=== PATIENT | male | born 1950 | race Caucasian/White ===

== ENCOUNTER 2017-11-23 01:20 | Inpatient (IN) | payer MEDICARE, BC ==
[2017-11-23 02:01] LABS: URINE BLOOD (Dip) POC 3+ (NEGATIVE); URINE GLUCOSE (Dip) POC Negative (NEGATIVE); URINE KETONES (Dip) POC 1+ (NEGATIVE); URINE LEUKOCYTE EST (Dip) POC 3+ (NEGATIVE); URINE NITRITE (Dip) POC Negative (NEGATIVE); URINE TOTAL PROTEIN POC 3+ (NEGATIVE)
[2017-11-23 02:01] LABS: URINE PH (Dip) POC 5.5 (5.0-8.5)
[2017-11-23 02:23] LABS: ADD MAN DIFF? NO
[2017-11-23 02:25] LABS: BASOPHIL # 0.1 10^3/ul (0.0-0.1); BASOPHILS % 0.3 % (0.0-2.0); EOSINOPHILS # 1.3 10^3/ul (0.0-0.5); EOSINOPHILS % 5.5 % (0.0-7.0); HEMATOCRIT 30.2 % (42.0-52.0); HEMOGLOBIN 9.4 g/dl (14.0-18.0); LYMPHOCYTES # 1.3 10^3/ul (0.8-2.9); LYMPHOCYTES % 5.3 % (15.0-51.0); MEAN CORPUSCULAR HEMOGLOBIN 30.5 pg (29.0-33.0); MEAN CORPUSCULAR HGB CONC 31.1 g/dl (32.0-37.0); MEAN CORPUSCULAR VOLUME 98.1 fl (82.0-101.0); MEAN PLATELET VOLUME 9.2 fl (7.4-10.4); MONOCYTE # 1.3 10^3/ul (0.3-0.9); MONOCYTES % 5.2 % (0.0-11.0); NEUTROPHIL # 19.9 10^3/ul (1.6-7.5); PLATELET COUNT 375 10^3/UL (140-415); RED BLOOD COUNT 3.08 10^6/ul (4.70-6.10); RED CELL DISTRIBUTION WIDTH 13.8 % (11.5-14.5)
[2017-11-23 02:41] LABS: ALANINE AMINOTRANSFERASE 22 IU/L (13-69); ALBUMIN 3.5 g/dl (3.3-4.9); ALBUMIN/GLOBULIN RATIO 1.02; ALKALINE PHOSPHATASE 78 IU/L (42-121); ANION GAP 12 (8-16); ASPARTATE AMINO TRANSFERASE 14 IU/L (15-46); BLOOD UREA NITROGEN 34 mg/dl (7-20); CALCIUM 9.6 mg/dl (8.4-10.2); CARBON DIOXIDE 33 mmol/L (21-31); CHLORIDE 101 mmol/L (97-110); CREATININE 1.23 mg/dl (0.61-1.24); GLUCOSE 100 mg/dl (70-220); LIPASE 116 U/L (23-300); POTASSIUM 4.6 mmol/L (3.5-5.1); SODIUM 141 mmol/L (135-144); TOTAL PROTEIN 6.9 g/dl (6.1-8.1)
[2017-11-23 02:43] LABS: ADD UMIC YES; INR 0.94; PROTIME 12.7 Sec (11.9-14.9); UR ASCORBIC ACID NEGATIVE (NEGATIVE); UR BACTERIA FEW /HPF (NONE SEEN); UR BILIRUBIN (Dip) NEGATIVE (NEGATIVE); UR BLOOD (Dip) 3+ mg/dL (NEGATIVE); UR CLARITY TURBID (CLEAR); UR COLOR RED (YELLOW); UR GLUCOSE (Dip) 1+ mg/dL (NEGATIVE); UR KETONES (Dip) NEGATIVE (NEGATIVE); UR LEUKOCYTE ESTERASE (Dip) NEGATIVE Leu/ul (NEGATIVE); UR NITRITE (Dip) NEGATIVE (NEGATIVE); UR RBC > 182 /HPF (0-5); UR SPECIFIC GRAVITY (Dip) 1.031 (1.003-1.030); UR TOTAL PROTEIN (Dip) 3+ mg/dl (NEGATIVE); UR UROBILINOGEN (Dip) NEGATIVE (NEGATIVE); UR WBC 78 /HPF (0-5)
[2017-11-23 02:44] LABS: PARTIAL THROMBOPLASTIN TIME 38.5 Sec (25.0-35.0)
[2017-11-23] MEDS: SODIUM CHLORIDE 0.9% 1L BAG IV* (03:23)
[2017-11-23] MEDS: CEFEPIME 2GM/50 ML (PMX) 50 ML IVPB (03:23)
[2017-11-23] MEDS: ONDANSETRON 4 MG INJ IV (03:44)
[2017-11-23] MEDS: VANCOMYCIN 1 GM (PMX) 250 ML IVPB (03:44)
[2017-11-23] MEDS: morphine 4 MG/ML VIAL IV (03:44)
[2017-11-23 04:00] LABS: LACTIC ACID 0.9 mmol/L (0.5-2.0)
[2017-11-23] MEDS: LORAZEPAM 2 MG INJ IV (04:14)
[2017-11-23] MEDS: HYDROmorphONE 1 MG/5 ML IV SYRINGE IV (04:46)
[2017-11-23] MEDS: LIDOCAINE 2% JELLY 5 ML TOP (04:46)
[2017-11-23] MEDS ORDERED: NACL 0.9% 3 ML SYG IV (07:00)
[2017-11-23] MEDS ORDERED: ONDANSETRON 4 MG INJ IV (07:00)
[2017-11-23] MEDS ORDERED: ACETAMINOPHEN 325 MG TAB PO (07:00)
[2017-11-23] MEDS ORDERED: VANCOMYCIN IV PER PHARMACY XX (07:00)
[2017-11-23 07:33] LABS: LACTIC ACID 0.7 mmol/L (0.5-2.0)
[2017-11-23] MEDS: PIPER-TAZO 3.375 GM IV (PMX) 100 ML IVPB ×3 (07:41→17:23)
[2017-11-23] MEDS: SOD CHLORIDE 0.9% 500 ML IV (08:07)
[2017-11-23 08:12] LABS: ADD MAN DIFF? NO
[2017-11-23 08:23] LABS: WHITE BLOOD COUNT 26.2 10^3/ul (4.8-10.8)
[2017-11-23 08:23] LABS: ABNORMAL IP MESSAGE 1; HEMATOCRIT 30.6 % (42.0-52.0); HEMOGLOBIN 9.6 g/dl (14.0-18.0); MEAN CORPUSCULAR HEMOGLOBIN 30.5 pg (29.0-33.0); MEAN CORPUSCULAR HGB CONC 31.4 g/dl (32.0-37.0); MEAN CORPUSCULAR VOLUME 97.1 fl (82.0-101.0); MEAN PLATELET VOLUME 9.2 fl (7.4-10.4); PLATELET COUNT 348 10^3/UL (140-415); POSITIVE DIFF @See below; RED BLOOD COUNT 3.15 10^6/ul (4.70-6.10); RED CELL DISTRIBUTION WIDTH 13.8 % (11.5-14.5)
[2017-11-23 08:33] LABS: ALANINE AMINOTRANSFERASE 21 IU/L (13-69); ALBUMIN 3.4 g/dl (3.3-4.9); ALBUMIN/GLOBULIN RATIO 1.03; ALKALINE PHOSPHATASE 71 IU/L (42-121); ANION GAP 13 (8-16); ASPARTATE AMINO TRANSFERASE 17 IU/L (15-46); BILIRUBIN,INDIRECT 0.2 mg/dl (0-1.1); BILIRUBIN,TOTAL 0.2 mg/dl (0.2-1.3); BLOOD UREA NITROGEN 34 mg/dl (7-20); CALCIUM 9.5 mg/dl (8.4-10.2); CARBON DIOXIDE 30 mmol/L (21-31); CHLORIDE 105 mmol/L (97-110); CREATININE 1.28 mg/dl (0.61-1.24); GLUCOSE 91 mg/dl (70-220); SODIUM 143 mmol/L (135-144); TOTAL PROTEIN 6.7 g/dl (6.1-8.1)
[2017-11-23 08:37] LABS: BASOPHIL # 0.1 10^3/ul (0.0-0.1); BASOPHILS % 0.4 % (0.0-2.0); EOSINOPHILS % 3.8 % (0.0-7.0); LYMPHOCYTES # 1.3 10^3/ul (0.8-2.9); LYMPHOCYTES % 4.8 % (15.0-51.0); MONOCYTE # 1.3 10^3/ul (0.3-0.9); NEUTROPHIL # 22.4 10^3/ul (1.6-7.5); NEUTROPHILS % 85.4 % (39.0-77.0)
[2017-11-23 08:42] LABS: CHOLESTEROL 102 mg/dl (100-200)
[2017-11-23 08:42] LABS: CHOL/HDL RATIO 3.4 RATIO; HDL CHOLESTEROL 30 mg/dl (31-75); LDL CHOLESTEROL,CALCULATED 52 mg/dl; TRIGLYCERIDES 99 mg/dl (0-149)
[2017-11-23 08:49] LABS: EOSINOPHILS % (M) 5 % (0-7); LYMPHOCYTES % (M) 4 % (15-51); MONOCYTE #M 1.8 10^3/ul (0.3-0.9); MONOCYTES % (M) 7 % (0-11); PLATELET ESTIMATE NORMAL; SEGMENTED NEUTROPHILS (M) % 84 % (39-77)
[2017-11-23 08:53] LABS: HEMOGLOBIN A1C 5.3 % (0-5.9)
[2017-11-23 09:03] LABS: PROSTATE SPECIFIC ANTIGEN 2.3 ng/ml (0.0-4.0)
[2017-11-23 09:16] LABS: CARCINOEMBRYONIC ANTIGEN 7.2 ng/ml (0.0-5.0)
[2017-11-23] MEDS: SOD CHLORIDE 0.9% 1,000 ML IV ×2 (11:41→17:23)
[2017-11-23 12:05] LABS: ADD MAN DIFF? NO
[2017-11-23] MEDS: PANTOPRAZOLE (EC) 40 MG TAB PO (12:24)
[2017-11-23] MEDS: SUCRALFATE (100 MG/ML) 10ML CUP PO ×3 (12:24→21:19)
[2017-11-23 12:27] LABS: ABNORMAL IP MESSAGE 1; BASOPHIL # 0.1 10^3/ul (0.0-0.1); BASOPHILS % 0.3 % (0.0-2.0); EOSINOPHILS # 0.7 10^3/ul (0.0-0.5); EOSINOPHILS % 2.8 % (0.0-7.0); HEMATOCRIT 28.7 % (42.0-52.0); HEMOGLOBIN 9.1 g/dl (14.0-18.0); LYMPHOCYTES # 0.6 10^3/ul (0.8-2.9); LYMPHOCYTES % 2.7 % (15.0-51.0); MEAN CORPUSCULAR HEMOGLOBIN 30.8 pg (29.0-33.0); MEAN CORPUSCULAR HGB CONC 31.7 g/dl (32.0-37.0); MEAN CORPUSCULAR VOLUME 97.3 fl (82.0-101.0); MEAN PLATELET VOLUME 9.2 fl (7.4-10.4); MONOCYTE # 1.1 10^3/ul (0.3-0.9); MONOCYTES % 4.7 % (0.0-11.0); NEUTROPHIL # 20.4 10^3/ul (1.6-7.5); NEUTROPHILS % 88.8 % (39.0-77.0); PLATELET COUNT 328 10^3/UL (140-415); POSITIVE DIFF @See below; RED BLOOD COUNT 2.95 10^6/ul (4.70-6.10); RED CELL DISTRIBUTION WIDTH 13.5 % (11.5-14.5)
[2017-11-23 12:37] LABS: LACTIC ACID 0.7 mmol/L (0.5-2.0)
[2017-11-23 14:25] LABS: PROSTATE SPECIFIC ANTIGEN 3.2 ng/ml (0.0-4.0)
[2017-11-23] MEDS: HYDROmorphONE 0.5 MG/0.5 ML SYG IV ×2 (17:25→21:19)
[2017-11-23 19:20] LABS: ADD UMIC YES; UR ASCORBIC ACID NEGATIVE (NEGATIVE); UR BACTERIA FEW /HPF (NONE SEEN); UR BILIRUBIN (Dip) NEGATIVE (NEGATIVE); UR BLOOD (Dip) 3+ mg/dL (NEGATIVE); UR CLARITY CLEAR (CLEAR); UR COLOR COLORLESS (YELLOW); UR GLUCOSE (Dip) NEGATIVE (NEGATIVE); UR KETONES (Dip) NEGATIVE (NEGATIVE); UR LEUKOCYTE ESTERASE (Dip) TRACE Leu/ul (NEGATIVE); UR NITRITE (Dip) NEGATIVE (NEGATIVE); UR RBC > 182 /HPF (0-5); UR SPECIFIC GRAVITY (Dip) 1.004 (1.003-1.030); UR TOTAL PROTEIN (Dip) NEGATIVE (NEGATIVE); UR UROBILINOGEN (Dip) NEGATIVE (NEGATIVE); UR WBC 6 /HPF (0-5)
[2017-11-23 19:37] LABS: SODIUM,URINE RANDOM 164 mmol/L (30-90)
[2017-11-23 19:41] LABS: CREATININE,URINE RANDOM < 12.40 mg/dl (20-370)
[2017-11-23] MEDS: GABAPENTIN 300 MG CAP PO (21:19)
[2017-11-23] MEDS: TAMSULOSIN (SR) 0.4 MG CAP PO (21:19)
[2017-11-24] MEDS: SOD CHLORIDE 0.9% 1,000 ML IV ×2 (00:10→14:04)
[2017-11-24] MEDS: PIPER-TAZO 3.375 GM IV (PMX) 100 ML IVPB ×4 (00:15→17:47)
[2017-11-24 00:57] LABS: ADD MAN DIFF? NO
[2017-11-24 00:58] LABS: ABNORMAL IP MESSAGE 1; BASOPHIL # 0.1 10^3/ul (0.0-0.1); BASOPHILS % 0.4 % (0.0-2.0); EOSINOPHILS # 0.2 10^3/ul (0.0-0.5); EOSINOPHILS % 0.6 % (0.0-7.0); HEMATOCRIT 27.5 % (42.0-52.0); HEMOGLOBIN 8.8 g/dl (14.0-18.0); LYMPHOCYTES # 1.1 10^3/ul (0.8-2.9); LYMPHOCYTES % 3.7 % (15.0-51.0); MEAN CORPUSCULAR HEMOGLOBIN 31.4 pg (29.0-33.0); MEAN CORPUSCULAR VOLUME 98.2 fl (82.0-101.0); MEAN PLATELET VOLUME 9.2 fl (7.4-10.4); MONOCYTE # 1.8 10^3/ul (0.3-0.9); MONOCYTES % 6.2 % (0.0-11.0); NEUTROPHIL # 26.1 10^3/ul (1.6-7.5); NEUTROPHILS % 88.3 % (39.0-77.0); PLATELET COUNT 330 10^3/UL (140-415); POSITIVE DIFF @See below; RED CELL DISTRIBUTION WIDTH 13.6 % (11.5-14.5)
[2017-11-24 00:58] LABS: WHITE BLOOD COUNT 29.5 10^3/ul (4.8-10.8)
[2017-11-24] MEDS: VANCOMYCIN 750 MG in DEXTROSE 5% 150 ML IVPB (03:10)
[2017-11-24] MEDS: HYDROmorphONE 0.5 MG/0.5 ML SYG IV (03:19)
[2017-11-24 06:05] LABS: ADD MAN DIFF? NO
[2017-11-24 06:15] LABS: ABNORMAL IP MESSAGE 1; BASOPHIL # 0.1 10^3/ul (0.0-0.1); BASOPHILS % 0.3 % (0.0-2.0); EOSINOPHILS # 0.1 10^3/ul (0.0-0.5); EOSINOPHILS % 0.4 % (0.0-7.0); HEMATOCRIT 27.1 % (42.0-52.0); HEMOGLOBIN 8.5 g/dl (14.0-18.0); LYMPHOCYTES # 1.4 10^3/ul (0.8-2.9); LYMPHOCYTES % 5.3 % (15.0-51.0); MEAN CORPUSCULAR HEMOGLOBIN 30.6 pg (29.0-33.0); MEAN CORPUSCULAR HGB CONC 31.4 g/dl (32.0-37.0); MEAN CORPUSCULAR VOLUME 97.5 fl (82.0-101.0); MEAN PLATELET VOLUME 9.4 fl (7.4-10.4); MONOCYTE # 1.7 10^3/ul (0.3-0.9); MONOCYTES % 6.1 % (0.0-11.0); NEUTROPHIL # 23.5 10^3/ul (1.6-7.5); NEUTROPHILS % 87.1 % (39.0-77.0); PLATELET COUNT 324 10^3/UL (140-415); POSITIVE DIFF @See below; RED BLOOD COUNT 2.78 10^6/ul (4.70-6.10); RED CELL DISTRIBUTION WIDTH 13.7 % (11.5-14.5)
[2017-11-24 06:45] LABS: ANION GAP 11 (8-16); BLOOD UREA NITROGEN 30 mg/dl (7-20); CALCIUM 8.9 mg/dl (8.4-10.2); CARBON DIOXIDE 31 mmol/L (21-31); CHLORIDE 103 mmol/L (97-110); CREATININE 1.54 mg/dl (0.61-1.24); GLUCOSE 127 mg/dl (70-220); MAGNESIUM 2.1 mg/dl (1.7-2.5); PHOSPHORUS 3.8 mg/dl (2.5-4.9); POTASSIUM 4.7 mmol/L (3.5-5.1); SODIUM 140 mmol/L (135-144)
[2017-11-24] MEDS: PANTOPRAZOLE (EC) 40 MG TAB PO (07:46)
[2017-11-24] MEDS: SUCRALFATE (100 MG/ML) 10ML CUP PO ×4 (08:42→20:19)
[2017-11-24] MEDS: GABAPENTIN 300 MG CAP PO ×3 (08:42→20:19)
[2017-11-24] MEDS: DOCUSATE SODIUM 100 MG CAP PO (08:43)
[2017-11-24] MEDS: ACETAMINOPHEN 325 MG TAB PO (09:52)
[2017-11-24 11:54] LABS: ADD MAN DIFF? NO
[2017-11-24 12:01] LABS: WHITE BLOOD COUNT 22.4 10^3/ul (4.8-10.8)
[2017-11-24 12:01] LABS: ABNORMAL IP MESSAGE 1; BASOPHIL # 0.1 10^3/ul (0.0-0.1); BASOPHILS % 0.3 % (0.0-2.0); EOSINOPHILS # 0.1 10^3/ul (0.0-0.5); EOSINOPHILS % 0.6 % (0.0-7.0); HEMATOCRIT 24.8 % (42.0-52.0); LYMPHOCYTES # 0.8 10^3/ul (0.8-2.9); LYMPHOCYTES % 3.7 % (15.0-51.0); MEAN CORPUSCULAR HEMOGLOBIN 31.4 pg (29.0-33.0); MEAN CORPUSCULAR HGB CONC 32.3 g/dl (32.0-37.0); MEAN CORPUSCULAR VOLUME 97.3 fl (82.0-101.0); MEAN PLATELET VOLUME 9.1 fl (7.4-10.4); MONOCYTE # 1.1 10^3/ul (0.3-0.9); MONOCYTES % 4.7 % (0.0-11.0); NEUTROPHIL # 20.2 10^3/ul (1.6-7.5); PLATELET COUNT 271 10^3/UL (140-415); POSITIVE DIFF @See below; RED BLOOD COUNT 2.55 10^6/ul (4.70-6.10)
[2017-11-24 16:46] LABS: CREATININE, RANDOM URINE 1 mg/dL (20-370); MICROALBUMIN 1.5 mg/dL; MICROALBUMIN/CREATININE RATIO 1500 (<30)
[2017-11-24] MEDS: TAMSULOSIN (SR) 0.4 MG CAP PO (20:19)
[2017-11-24] MEDS: HYDROmorphONE 2 MG TAB PO (22:30)
[2017-11-25] MEDS: PIPER-TAZO 3.375 GM IV (PMX) 100 ML IVPB ×4 (00:27→18:00)
[2017-11-25] MEDS: SOD CHLORIDE 0.9% 1,000 ML IV ×3 (00:27→11:38)
[2017-11-25] MEDS: morphine 2 MG INJ IV ×4 (03:03→16:02)
[2017-11-25] MEDS: ONDANSETRON 4 MG INJ IV (03:03)
[2017-11-25] MEDS: PANTOPRAZOLE (EC) 40 MG TAB PO (05:16)
[2017-11-25 05:45] LABS: ADD MAN DIFF? NO
[2017-11-25 05:48] LABS: BASOPHIL # 0.1 10^3/ul (0.0-0.1); BASOPHILS % 0.3 % (0.0-2.0); EOSINOPHILS # 0.8 10^3/ul (0.0-0.5); EOSINOPHILS % 4.2 % (0.0-7.0); HEMATOCRIT 25.5 % (42.0-52.0); HEMOGLOBIN 7.9 g/dl (14.0-18.0); LYMPHOCYTES # 1.4 10^3/ul (0.8-2.9); LYMPHOCYTES % 7.4 % (15.0-51.0); MEAN CORPUSCULAR HEMOGLOBIN 30.2 pg (29.0-33.0); MEAN CORPUSCULAR VOLUME 97.3 fl (82.0-101.0); MEAN PLATELET VOLUME 9.4 fl (7.4-10.4); MONOCYTE # 1.1 10^3/ul (0.3-0.9); MONOCYTES % 5.8 % (0.0-11.0); NEUTROPHIL # 14.9 10^3/ul (1.6-7.5); NEUTROPHILS % 81.6 % (39.0-77.0); PLATELET COUNT 299 10^3/UL (140-415); RED BLOOD COUNT 2.62 10^6/ul (4.70-6.10); RED CELL DISTRIBUTION WIDTH 13.6 % (11.5-14.5)
[2017-11-25 05:48] LABS: WHITE BLOOD COUNT 18.2 10^3/ul (4.8-10.8)
[2017-11-25 06:28] LABS: ANION GAP 10 (8-16); BLOOD UREA NITROGEN 29 mg/dl (7-20); CALCIUM 8.6 mg/dl (8.4-10.2); CARBON DIOXIDE 31 mmol/L (21-31); CHLORIDE 107 mmol/L (97-110); GLUCOSE 95 mg/dl (70-220); MAGNESIUM 2.1 mg/dl (1.7-2.5); POTASSIUM 4.9 mmol/L (3.5-5.1); SODIUM 143 mmol/L (135-144)
[2017-11-25] MEDS ORDERED: ESMOLOL 100 MG INJ (07:00)
[2017-11-25] MEDS: GABAPENTIN 300 MG CAP PO ×2 (09:00→13:00)
[2017-11-25] MEDS: SUCRALFATE (100 MG/ML) 10ML CUP PO ×3 (09:00→17:00)
[2017-11-25] MEDS ORDERED: ROCURONIUM 50 MG INJ ×2 (19:00→20:54)
[2017-11-25] MEDS ORDERED: ETOMIDATE 20 MG INJ (19:00)
[2017-11-25] MEDS ORDERED: LIDOCAINE 2% (SDV) 5 ML INJ (19:00)
[2017-11-25] MEDS ORDERED: FENTAnyl 50 MCG/ML VIAL ×2 (19:01→19:42)
[2017-11-25] MEDS ORDERED: DEXAMETHASONE 4 MG/ML 1 ML INJ (19:23)
[2017-11-25] MEDS ORDERED: ONDANSETRON 4 MG INJ (19:23)
[2017-11-25] MEDS ORDERED: PHENYLephrine (100 MCG/ML) 5ML SYG ×2 (19:25→19:36)
[2017-11-25] MEDS ORDERED: METHYLENE BLUE 1% 10 ML INJ (19:49)
[2017-11-25 20:31] LABS: IMMEDIATE SPIN CROSSMATCH 1 4
[2017-11-25] MEDS ORDERED: SUGAMMADEX SODIUM 200 MG/2 ML VIAL IV (20:58)
[2017-11-25] MEDS ORDERED: HYDROmorphONE 1 MG/5 ML IV SYRINGE IV ×2 (21:30→22:00)
[2017-11-25] MEDS: HYDROmorphONE 1 MG/5 ML IV SYRINGE IV (21:40)
[2017-11-25] MEDS ORDERED: ONDANSETRON 4 MG INJ IV (22:00)
[2017-11-25] MEDS ORDERED: hydrALAzine 20 MG INJ IV (22:00)
[2017-11-25] MEDS ORDERED: LABETALOL HCL 20MG INJ IV (22:00)
[2017-11-26] MEDS: HYDROmorphONE 1 MG/5 ML IV SYRINGE IV (00:27)
[2017-11-26] MEDS: GABAPENTIN 300 MG CAP PO ×4 (01:07→20:58)
[2017-11-26] MEDS: SUCRALFATE (100 MG/ML) 10ML CUP PO ×5 (01:07→20:58)
[2017-11-26] MEDS: PIPER-TAZO 3.375 GM IV (PMX) 100 ML IVPB ×5 (01:07→23:28)
[2017-11-26] MEDS: SOD CHLORIDE 0.9% 1,000 ML IV ×3 (01:10→23:25)
[2017-11-26] MEDS: morphine 2 MG INJ IV ×2 (04:05→16:29)
[2017-11-26 06:07] LABS: ADD MAN DIFF? NO
[2017-11-26 06:14] LABS: ABNORMAL IP MESSAGE 1; BASOPHILS % 0.1 % (0.0-2.0); HEMATOCRIT 35.1 % (42.0-52.0); HEMOGLOBIN 11.7 g/dl (14.0-18.0); LYMPHOCYTES # 0.4 10^3/ul (0.8-2.9); LYMPHOCYTES % 1.4 % (15.0-51.0); MEAN CORPUSCULAR HEMOGLOBIN 31.1 pg (29.0-33.0); MEAN CORPUSCULAR HGB CONC 33.3 g/dl (32.0-37.0); MEAN CORPUSCULAR VOLUME 93.4 fl (82.0-101.0); MEAN PLATELET VOLUME 9.5 fl (7.4-10.4); MONOCYTE # 0.2 10^3/ul (0.3-0.9); MONOCYTES % 0.8 % (0.0-11.0); NEUTROPHIL # 26.4 10^3/ul (1.6-7.5); NEUTROPHILS % 96.7 % (39.0-77.0); PLATELET COUNT 278 10^3/UL (140-415); POSITIVE DIFF @See below; RED BLOOD COUNT 3.76 10^6/ul (4.70-6.10); RED CELL DISTRIBUTION WIDTH 14.3 % (11.5-14.5)
[2017-11-26 06:14] LABS: WHITE BLOOD COUNT 27.3 10^3/ul (4.8-10.8)
[2017-11-26] MEDS: PANTOPRAZOLE (EC) 40 MG TAB PO (06:22)
[2017-11-26 06:31] LABS: PHOSPHORUS 4.8 mg/dl (2.5-4.9)
[2017-11-26 06:31] LABS: MAGNESIUM 1.9 mg/dl (1.7-2.5)
[2017-11-26 06:42] LABS: ALANINE AMINOTRANSFERASE 20 IU/L (13-69); ALKALINE PHOSPHATASE 66 IU/L (42-121); ASPARTATE AMINO TRANSFERASE 16 IU/L (15-46); BILIRUBIN,INDIRECT 0.8 mg/dl (0-1.1); BILIRUBIN,TOTAL 0.8 mg/dl (0.2-1.3); BLOOD UREA NITROGEN 26 mg/dl (7-20); CALCIUM 8.9 mg/dl (8.4-10.2); CARBON DIOXIDE 28 mmol/L (21-31); CHLORIDE 103 mmol/L (97-110); CREATININE 1.21 mg/dl (0.61-1.24); GLUCOSE 141 mg/dl (70-220); SODIUM 141 mmol/L (135-144)
[2017-11-26 06:51] LABS: ANION GAP 15 (8-16)
[2017-11-26 06:52] LABS: POTASSIUM 4.5 mmol/L (3.5-5.1)
[2017-11-26] MEDS: DOCUSATE SODIUM 100 MG CAP PO (08:10)
[2017-11-26] MEDS: HYDROmorphONE 2 MG TAB PO ×2 (08:11→12:37)
[2017-11-27] MEDS: HYDROmorphONE 2 MG TAB PO ×3 (01:12→20:44)
[2017-11-27 05:40] LABS: ADD MAN DIFF? NO
[2017-11-27 05:43] LABS: WHITE BLOOD COUNT 17.8 10^3/ul (4.8-10.8)
[2017-11-27 05:43] LABS: BASOPHIL # 0.1 10^3/ul (0.0-0.1); BASOPHILS % 0.3 % (0.0-2.0); EOSINOPHILS # 0.1 10^3/ul (0.0-0.5); EOSINOPHILS % 0.4 % (0.0-7.0); HEMOGLOBIN 10.9 g/dl (14.0-18.0); LYMPHOCYTES # 1.2 10^3/ul (0.8-2.9); LYMPHOCYTES % 6.8 % (15.0-51.0); MEAN CORPUSCULAR HEMOGLOBIN 31.1 pg (29.0-33.0); MEAN PLATELET VOLUME 9.5 fl (7.4-10.4); MONOCYTES % 5.8 % (0.0-11.0); NEUTROPHIL # 15.3 10^3/ul (1.6-7.5); NEUTROPHILS % 86.1 % (39.0-77.0); PLATELET COUNT 289 10^3/UL (140-415); RED BLOOD COUNT 3.51 10^6/ul (4.70-6.10)
[2017-11-27] MEDS: PANTOPRAZOLE (EC) 40 MG TAB PO (06:00)
[2017-11-27] MEDS: PIPER-TAZO 3.375 GM IV (PMX) 100 ML IVPB ×3 (06:00→17:56)
[2017-11-27 06:11] LABS: ANION GAP 8 (8-16); BLOOD UREA NITROGEN 27 mg/dl (7-20); CALCIUM 8.7 mg/dl (8.4-10.2); CARBON DIOXIDE 29 mmol/L (21-31); CHLORIDE 108 mmol/L (97-110); GLUCOSE 104 mg/dl (70-220); MAGNESIUM 2.1 mg/dl (1.7-2.5); PHOSPHORUS 2.9 mg/dl (2.5-4.9); POTASSIUM 4.4 mmol/L (3.5-5.1); SODIUM 141 mmol/L (135-144)
[2017-11-27] MEDS: morphine 2 MG INJ IV (08:22)
[2017-11-27] MEDS: GABAPENTIN 300 MG CAP PO ×3 (08:23→20:44)
[2017-11-27] MEDS: SUCRALFATE (100 MG/ML) 10ML CUP PO ×4 (08:23→20:44)
[2017-11-27] MEDS: SOD CHLORIDE 0.9% 1,000 ML IV ×2 (12:21→22:00)
[2017-11-28] MEDS: PIPER-TAZO 3.375 GM IV (PMX) 100 ML IVPB ×4 (00:25→17:21)
[2017-11-28] MEDS ORDERED: VANCOMYCIN IV PER PHARMACY XX (02:00)
[2017-11-28] MEDS: VANCOMYCIN 1.25 GM in SOD CHLORIDE 0.9% 250 ML IVPB (03:16)
[2017-11-28] MEDS: HYDROmorphONE 2 MG TAB PO ×4 (03:23→20:01)
[2017-11-28 06:14] LABS: ADD MAN DIFF? NO
[2017-11-28] MEDS: SOD CHLORIDE 0.9% 1,000 ML IV ×2 (06:17→17:21)
[2017-11-28 06:19] LABS: WHITE BLOOD COUNT 29.5 10^3/ul (4.8-10.8)
[2017-11-28 06:19] LABS: ABNORMAL IP MESSAGE 1; BASOPHIL # 0.1 10^3/ul (0.0-0.1); BASOPHILS % 0.3 % (0.0-2.0); EOSINOPHILS % 0.1 % (0.0-7.0); HEMATOCRIT 35.3 % (42.0-52.0); HEMOGLOBIN 11.7 g/dl (14.0-18.0); LYMPHOCYTES # 1.4 10^3/ul (0.8-2.9); LYMPHOCYTES % 4.8 % (15.0-51.0); MEAN CORPUSCULAR HGB CONC 33.1 g/dl (32.0-37.0); MEAN CORPUSCULAR VOLUME 93.4 fl (82.0-101.0); MEAN PLATELET VOLUME 9.6 fl (7.4-10.4); MONOCYTE # 1.9 10^3/ul (0.3-0.9); MONOCYTES % 6.4 % (0.0-11.0); NEUTROPHIL # 25.9 10^3/ul (1.6-7.5); NEUTROPHILS % 87.8 % (39.0-77.0); PLATELET COUNT 307 10^3/UL (140-415); POSITIVE DIFF @See below; RED BLOOD COUNT 3.78 10^6/ul (4.70-6.10); RED CELL DISTRIBUTION WIDTH 13.5 % (11.5-14.5)
[2017-11-28] MEDS: PANTOPRAZOLE (EC) 40 MG TAB PO (06:34)
[2017-11-28 06:53] LABS: ANION GAP 11 (8-16); BLOOD UREA NITROGEN 24 mg/dl (7-20); CALCIUM 8.5 mg/dl (8.4-10.2); CARBON DIOXIDE 28 mmol/L (21-31); CHLORIDE 104 mmol/L (97-110); CREATININE 1.17 mg/dl (0.61-1.24); GLUCOSE 86 mg/dl (70-220); MAGNESIUM 2.1 mg/dl (1.7-2.5); PHOSPHORUS 2.5 mg/dl (2.5-4.9); POTASSIUM 3.7 mmol/L (3.5-5.1); SODIUM 139 mmol/L (135-144)
[2017-11-28] MEDS: GABAPENTIN 300 MG CAP PO ×3 (08:06→20:01)
[2017-11-28] MEDS: SUCRALFATE (100 MG/ML) 10ML CUP PO ×4 (08:06→20:01)
[2017-11-28] MEDS: SOD CHLORIDE 0.9% 100 ML (08:57)
[2017-11-28] MEDS: IODIXANOL LOCM 100 ML BTL (08:57)
[2017-11-28 10:04] LABS: IRON 24 ug/dl (35-150)
[2017-11-28 10:14] LABS: % IRON SATURATION 11 % SAT (22-52); TOTAL IRON BINDING CAPACITY 211 ug/dl (241-421)
[2017-11-28 13:04] LABS: HEPATITIS B SURFACE ANTIGEN NEGATIVE (NEGATIVE)
[2017-11-28 13:21] LABS: HEPATITIS C VIRAL ANTIBODY NEGATIVE (NEGATIVE)
[2017-11-28] MEDS: VANCOMYCIN 1 GM 250 ML IVPB (14:49)
[2017-11-28] MEDS: morphine LIQ (10 MG/5 ML) CUP PO ×2 (16:54→21:50)
[2017-11-29] MEDS: PIPER-TAZO 3.375 GM IV (PMX) 100 ML IVPB ×5 (00:05→23:57)
[2017-11-29] MEDS: HYDROmorphONE 2 MG TAB PO ×5 (02:26→20:48)
[2017-11-29] MEDS: VANCOMYCIN 1 GM 250 ML IVPB ×2 (02:26→15:32)
[2017-11-29] MEDS: SOD CHLORIDE 0.9% 1,000 ML IV ×2 (04:02→14:15)
[2017-11-29] MEDS: PANTOPRAZOLE (EC) 40 MG TAB PO (05:46)
[2017-11-29] MEDS: GABAPENTIN 300 MG CAP PO ×3 (08:28→20:48)
[2017-11-29] MEDS: morphine LIQ (10 MG/5 ML) CUP PO ×2 (08:28→22:06)
[2017-11-29] MEDS: SUCRALFATE (100 MG/ML) 10ML CUP PO ×4 (08:28→20:48)
[2017-11-29 09:27] LABS: ADD MAN DIFF? NO
[2017-11-29 09:32] LABS: WHITE BLOOD COUNT 23.7 10^3/ul (4.8-10.8)
[2017-11-29 09:32] LABS: ABNORMAL IP MESSAGE 1; BASOPHIL # 0.1 10^3/ul (0.0-0.1); BASOPHILS % 0.4 % (0.0-2.0); EOSINOPHILS # 0.7 10^3/ul (0.0-0.5); EOSINOPHILS % 2.9 % (0.0-7.0); HEMATOCRIT 37.6 % (42.0-52.0); HEMOGLOBIN 12.4 g/dl (14.0-18.0); LYMPHOCYTES % 4.1 % (15.0-51.0); MEAN CORPUSCULAR HEMOGLOBIN 31.4 pg (29.0-33.0); MEAN CORPUSCULAR VOLUME 95.2 fl (82.0-101.0); MEAN PLATELET VOLUME 9.5 fl (7.4-10.4); MONOCYTES % 4.3 % (0.0-11.0); NEUTROPHIL # 20.8 10^3/ul (1.6-7.5); NEUTROPHILS % 87.6 % (39.0-77.0); PLATELET COUNT 323 10^3/UL (140-415); POSITIVE DIFF @See below; RED BLOOD COUNT 3.95 10^6/ul (4.70-6.10); RED CELL DISTRIBUTION WIDTH 13.2 % (11.5-14.5)
[2017-11-29 15:07] LABS: VANCOMYCIN,TROUGH 13.2 ug/ml (10.0-20.0)
[2017-11-29] MEDS: FERROUS SULFATE (EC) 325 MG TAB PO (20:48)
[2017-11-30] MEDS: HYDROmorphONE 2 MG TAB PO ×3 (02:48→20:36)
[2017-11-30] MEDS: SOD CHLORIDE 0.9% 1,000 ML IV ×2 (02:56→18:49)
[2017-11-30] MEDS: VANCOMYCIN 1 GM 250 ML IVPB ×2 (03:04→15:49)
[2017-11-30] MEDS: SOD CHLORIDE 0.9% 500 ML IV (05:08)
[2017-11-30] MEDS: PIPER-TAZO 3.375 GM IV (PMX) 100 ML IVPB ×3 (06:13→18:06)
[2017-11-30] MEDS: PANTOPRAZOLE (EC) 40 MG TAB PO (06:13)
[2017-11-30 07:11] LABS: BLOOD UREA NITROGEN 23 mg/dl (7-20)
[2017-11-30 07:11] LABS: CREATININE 1.16 mg/dl (0.61-1.24)
[2017-11-30] MEDS: GABAPENTIN 300 MG CAP PO ×3 (09:19→20:35)
[2017-11-30] MEDS: FERROUS SULFATE (EC) 325 MG TAB PO ×2 (09:19→20:35)
[2017-11-30] MEDS: SUCRALFATE (100 MG/ML) 10ML CUP PO ×4 (09:19→20:36)
[2017-12-01] MEDS: PIPER-TAZO 3.375 GM IV (PMX) 100 ML IVPB ×5 (00:40→23:28)
[2017-12-01] MEDS: HYDROmorphONE 2 MG TAB PO ×5 (00:41→23:28)
[2017-12-01] MEDS: VANCOMYCIN 1 GM 250 ML IVPB (03:52)
[2017-12-01] MEDS: PANTOPRAZOLE (EC) 40 MG TAB PO (05:46)
[2017-12-01] MEDS: SOD CHLORIDE 0.9% 1,000 ML IV ×2 (05:47→08:46)
[2017-12-01] MEDS: GABAPENTIN 300 MG CAP PO (09:00)
[2017-12-01] MEDS: FERROUS SULFATE (EC) 325 MG TAB PO ×2 (09:00→21:19)
[2017-12-01] MEDS: SUCRALFATE (100 MG/ML) 10ML CUP PO ×4 (09:00→21:19)
[2017-12-01] MEDS: morphine (ER) 15 MG TAB PO ×2 (10:08→21:19)
[2017-12-01] MEDS: NAPROXEN 250 MG TAB PO ×2 (11:52→21:19)
[2017-12-02] MEDS: PIPER-TAZO 3.375 GM IV (PMX) 100 ML IVPB ×2 (05:49→12:22)
[2017-12-02] MEDS: PANTOPRAZOLE (EC) 40 MG TAB PO (05:50)
[2017-12-02] MEDS: HYDROmorphONE 2 MG TAB PO ×2 (05:50→12:50)
[2017-12-02 06:11] LABS: ANION GAP 9 (8-16); BLOOD UREA NITROGEN 26 mg/dl (7-20); CARBON DIOXIDE 31 mmol/L (21-31); CHLORIDE 104 mmol/L (97-110); GLUCOSE 87 mg/dl (70-220); MAGNESIUM 2.4 mg/dl (1.7-2.5); POTASSIUM 4.5 mmol/L (3.5-5.1); SODIUM 139 mmol/L (135-144)
[2017-12-02] MEDS: morphine (ER) 15 MG TAB PO (09:08)
[2017-12-02] MEDS: FERROUS SULFATE (EC) 325 MG TAB PO (09:08)
[2017-12-02] MEDS: SUCRALFATE (100 MG/ML) 10ML CUP PO ×2 (09:08→12:22)
[2017-12-02] MEDS: NAPROXEN 250 MG TAB PO (09:08)
== END 2017-12-02 15:15 | disposition home health service (06) | DRG 854 ==
LOC: E/R 01:20 → PP2 06:46
PROC: 0TBB8ZZ Excision of Bladder, Via Natural or Artificial Opening Endoscopic (ICD-10-PCS; principal; 2017-11-25 17:21)
PROC: 30233P1 Transfusion of Nonautologous Frozen Red Cells into Peripheral Vein, Percutaneous Approach (ICD-10-PCS; 2017-11-25 19:08)
DX: A41.9 Sepsis, unspecified organism (principal); N39.0 Urinary tract infection, site not specified; E44.0 Moderate protein-calorie malnutrition; N17.9 Acute kidney failure, unspecified; N13.30 Unspecified hydronephrosis; Z68.20 Body mass index [BMI] 20.0-20.9, adult; C67.9 Malignant neoplasm of bladder, unspecified; K62.89 Other specified diseases of anus and rectum; G89.29 Other chronic pain; R31.0 Gross hematuria; E83.89 Other disorders of mineral metabolism; E86.0 Dehydration; N40.1 Benign prostatic hyperplasia with lower urinary tract symptoms; M51.17 Intervertebral disc disorders with radiculopathy, lumbosacral region; M54.41 Lumbago with sciatica, right side; D50.9 Iron deficiency anemia, unspecified
CPT/HCPCS: 36415; 36430; 71045; 71250; 72148; 74176; 76700; 76775; 78306; 80048; 80053; 80061; 80202; 81001; 81003; 81270; 82043; 82378; 82565; 82728; 83036; 83540; 83605; 83690; 83735; 84100; 84153; 84154; 84155; 84300; 84443; 84520; 85025; 85610; 85730; 86803; 86850; 86900; 86901; 86920; 87040; 87086; 87340; 88104; 88305; 88307; 93005; 96365; 96366; 96367; 96375; 97116; 97162; 97530; 99291-25; A9503

== ENCOUNTER 2018-03-04 20:05 | Inpatient (IN) | payer MEDICARE, BC ==
[2018-03-04 22:02] LABS: WHITE BLOOD COUNT 11.1 10^3/ul (4.8-10.8)
[2018-03-04 22:02] LABS: ABNORMAL IP MESSAGE 1; HEMATOCRIT 24.5 % (42.0-52.0); MEAN CORPUSCULAR HEMOGLOBIN 30.3 pg (29.0-33.0); MEAN CORPUSCULAR HGB CONC 32.7 g/dl (32.0-37.0); MEAN CORPUSCULAR VOLUME 92.8 fl (82.0-101.0); MEAN PLATELET VOLUME 11.3 fl (7.4-10.4); PLATELET COUNT 205 10^3/UL (140-415); POSITIVE DIFF @See below; RED BLOOD COUNT 2.64 10^6/ul (4.70-6.10); RED CELL DISTRIBUTION WIDTH 18.7 % (11.5-14.5)
[2018-03-04 22:04] LABS: LACTIC ACID 1.8 mmol/L (0.5-2.0)
[2018-03-04 22:10] LABS: ADD MAN DIFF? YES
[2018-03-04] MEDS: SOD CHLORIDE 0.9% 1,000 ML IV ×2 (22:17→23:39)
[2018-03-04] MEDS: ONDANSETRON 4 MG INJ IV (22:18)
[2018-03-04 22:24] LABS: ALANINE AMINOTRANSFERASE 10 IU/L (13-69); ALBUMIN 3.1 g/dl (3.3-4.9); ALKALINE PHOSPHATASE 113 IU/L (42-121); ANION GAP 24 (8-16); ASPARTATE AMINO TRANSFERASE 49 IU/L (15-46); BILIRUBIN,INDIRECT 0.1 mg/dl (0-1.1); BILIRUBIN,TOTAL 0.1 mg/dl (0.2-1.3); BLOOD UREA NITROGEN 116 mg/dl (7-20); CALCIUM 8.6 mg/dl (8.4-10.2); CARBON DIOXIDE 20 mmol/L (21-31); CHLORIDE 96 mmol/L (97-110); GLUCOSE 141 mg/dl (70-220); LIPASE 13 U/L (23-300); SODIUM 132 mmol/L (135-144); TOTAL PROTEIN 6.2 g/dl (6.1-8.1)
[2018-03-04 22:27] LABS: POTASSIUM 7.9 mmol/L (3.5-5.1)
[2018-03-04 22:35] LABS: TROPONIN-I 0.032 ng/ml (0.000-0.120)
[2018-03-04 22:41] LABS: CREATININE 6.06 mg/dl (0.61-1.24)
[2018-03-04 22:44] LABS: ANISOCYTOSIS 1+ (0-0); BAND NEUTROPHILS #M 4.4 10^3/ul (0.0-0.6); BAND NEUTROPHILS % (M) 40 % (0-4); GIANT THROMBO% (M) 5 % (0-0); LYMPHOCYTES #M 0.1 10^3/ul (0.8-2.9); LYMPHOCYTES % (M) 1 % (15-51); MONOCYTE #M 0.2 10^3/ul (0.3-0.9); MONOCYTES % (M) 2 % (0-11); PLATELET ESTIMATE NORMAL; SEG NEUT #M 6.8 10^3/ul (1.6-7.5); SEGMENTED NEUTROPHILS (M) % 57 % (39-77); SMUDGE%M 25 % (0-0)
[2018-03-04] MEDS: morphine 10 MG INJ IV (23:33)
[2018-03-04] MEDS: morphine 4 MG/ML VIAL IV (23:34)
[2018-03-05] MEDS ORDERED: ACETAMINOPHEN 325 MG TAB PO
[2018-03-05] MEDS ORDERED: NACL 0.9% 3 ML SYG IV
[2018-03-05] MEDS ORDERED: ONDANSETRON 4 MG INJ IV
[2018-03-05] MEDS: HYDROmorphONE 2 MG/ML SYG IV (00:02)
[2018-03-05 00:31] LABS: ADD UMIC YES; UR AMORPHOUS CRYSTAL FEW /HPF (NONE SEEN); UR ASCORBIC ACID NEGATIVE (NEGATIVE); UR BACTERIA FEW /HPF (NONE SEEN); UR BILIRUBIN (Dip) NEGATIVE (NEGATIVE); UR BLOOD (Dip) 1+ mg/dL (NEGATIVE); UR CLARITY TURBID (CLEAR); UR COLOR YELLOW (YELLOW); UR GLUCOSE (Dip) NEGATIVE (NEGATIVE); UR KETONES (Dip) NEGATIVE (NEGATIVE); UR LEUKOCYTE ESTERASE (Dip) 2+ Leu/ul (NEGATIVE); UR NITRITE (Dip) NEGATIVE (NEGATIVE); UR NONSQUAMOUS EPITHELIAL CELL 2 /HPF (NONE SEEN); UR RBC 12 /HPF (0-5); UR SPECIFIC GRAVITY (Dip) 1.011 (1.003-1.030); UR SQUAMOUS EPITHELIAL CELL FEW /HPF (FEW); UR TOTAL PROTEIN (Dip) 2+ mg/dl (NEGATIVE); UR UROBILINOGEN (Dip) NEGATIVE (NEGATIVE); UR WBC > 182 /HPF (0-5)
[2018-03-05] MEDS: CALCIUM GLUCONATE 10% 1 GM in DEXTROSE 5% 100 ML IVPB (00:43)
[2018-03-05] MEDS: CEFEPIME 1GM/50 ML (PMX) 50 ML IVPB (00:46)
[2018-03-05] MEDS: DEXTROSE 50% 50 ML SYRINGE IV (00:53)
[2018-03-05] MEDS: INSULIN REGULAR, HUMAN 100 UNIT/1 ML 3ML VIAL IVP (00:55)
[2018-03-05] MEDS: SOD CHLORIDE 0.9% 250 ML IV (02:15)
[2018-03-05] MEDS: NA POLYST SULFON 15 GM/60 ML BTL PO (03:16)
[2018-03-05 04:42] LABS: IMMEDIATE SPIN CROSSMATCH 1 2
[2018-03-05] MEDS ORDERED: PENDING SANTYL ORDER FOR WOUND CARE XX (06:00)
[2018-03-05] MEDS: SOD CHLORIDE 0.9% 1,000 ML IV ×2 (09:39→21:16)
[2018-03-05] MEDS: morphine (ER) 15 MG TAB PO ×2 (09:44→20:59)
[2018-03-05] MEDS: DRONABINOL 2.5 MG CAP PO ×2 (09:44→20:58)
[2018-03-05 15:44] LABS: ADD MAN DIFF? NO
[2018-03-05 15:46] LABS: ABNORMAL IP MESSAGE 1; BASOPHILS % 0.1 % (0.0-2.0); HEMATOCRIT 33.9 % (42.0-52.0); HEMOGLOBIN 10.9 g/dl (14.0-18.0); LYMPHOCYTES # 0.2 10^3/ul (0.8-2.9); LYMPHOCYTES % 2.2 % (15.0-51.0); MEAN CORPUSCULAR HEMOGLOBIN 28.5 pg (29.0-33.0); MEAN CORPUSCULAR HGB CONC 32.2 g/dl (32.0-37.0); MEAN CORPUSCULAR VOLUME 88.5 fl (82.0-101.0); MEAN PLATELET VOLUME 10.8 fl (7.4-10.4); MONOCYTE # 0.7 10^3/ul (0.3-0.9); MONOCYTES % 9.5 % (0.0-11.0); NEUTROPHIL # 6.4 10^3/ul (1.6-7.5); NEUTROPHILS % 87.4 % (39.0-77.0); PLATELET COUNT 158 10^3/UL (140-415); POSITIVE DIFF @See below; RED BLOOD COUNT 3.83 10^6/ul (4.70-6.10); RED CELL DISTRIBUTION WIDTH 18.8 % (11.5-14.5)
[2018-03-05 15:46] LABS: WHITE BLOOD COUNT 7.3 10^3/ul (4.8-10.8)
[2018-03-05 16:08] LABS: ALANINE AMINOTRANSFERASE 21 IU/L (13-69); ALBUMIN 2.9 g/dl (3.3-4.9); ALBUMIN/GLOBULIN RATIO 0.85; ALKALINE PHOSPHATASE 96 IU/L (42-121); ANION GAP 18 (8-16); ASPARTATE AMINO TRANSFERASE 36 IU/L (15-46); BILIRUBIN,INDIRECT 0.1 mg/dl (0-1.1); BILIRUBIN,TOTAL 0.1 mg/dl (0.2-1.3); BLOOD UREA NITROGEN 89 mg/dl (7-20); CALCIUM 8.8 mg/dl (8.4-10.2); CARBON DIOXIDE 23 mmol/L (21-31); CHLORIDE 104 mmol/L (97-110); CREATININE 4.53 mg/dl (0.61-1.24); GLUCOSE 120 mg/dl (70-220); MAGNESIUM 2.6 mg/dl (1.7-2.5); SODIUM 140 mmol/L (135-144); TOTAL PROTEIN 6.3 g/dl (6.1-8.1)
[2018-03-05] MEDS: DILTIAZEM 25 MG INJ IV (21:03)
[2018-03-05] MEDS: MIRTAZAPINE 15 MG TAB PO (21:06)
[2018-03-05 22:08] LABS: ADD UMIC YES; UR ASCORBIC ACID NEGATIVE (NEGATIVE); UR BACTERIA MODERATE /HPF (NONE SEEN); UR BILIRUBIN (Dip) NEGATIVE (NEGATIVE); UR BLOOD (Dip) 3+ mg/dL (NEGATIVE); UR CLARITY CLOUDY (CLEAR); UR COLOR YELLOW (YELLOW); UR GLUCOSE (Dip) NEGATIVE (NEGATIVE); UR KETONES (Dip) NEGATIVE (NEGATIVE); UR LEUKOCYTE ESTERASE (Dip) 3+ Leu/ul (NEGATIVE); UR NITRITE (Dip) NEGATIVE (NEGATIVE); UR RBC 67 /HPF (0-5); UR SPECIFIC GRAVITY (Dip) 1.013 (1.003-1.030); UR TOTAL PROTEIN (Dip) 1+ mg/dl (NEGATIVE); UR UROBILINOGEN (Dip) NEGATIVE (NEGATIVE); UR WBC > 182 /HPF (0-5)
[2018-03-05] MEDS: METOPROLOL 25 MG TAB PO (22:11)
[2018-03-05] MEDS: DILTIAZEM-D5W 125MG/125ML DRIP 125 ML IV (22:48)
[2018-03-05 23:15] LABS: SODIUM,URINE RANDOM 42 mmol/L (30-90)
[2018-03-05 23:15] LABS: CREATININE,URINE RANDOM 42.67 mg/dl (20-370)
[2018-03-06] MEDS: SOD CHLORIDE 0.9% 250 ML IV (00:50)
[2018-03-06] MEDS: AMIODARONE 150MG/D5W BOLUS 100 ML IV (01:11)
[2018-03-06] MEDS: AMIODARONE 900 MG in DEXTROSE 5% 482 ML IV (01:18)
[2018-03-06] MEDS: SOD CHLORIDE 0.9% 1,000 ML IV ×4 (01:59→22:26)
[2018-03-06 06:46] LABS: ANION GAP 17 (8-16); BLOOD UREA NITROGEN 74 mg/dl (7-20); CALCIUM 8.8 mg/dl (8.4-10.2); CARBON DIOXIDE 22 mmol/L (21-31); CHLORIDE 107 mmol/L (97-110); CREATININE 3.03 mg/dl (0.61-1.24); GLUCOSE 104 mg/dl (70-220); MAGNESIUM 2.5 mg/dl (1.7-2.5); PHOSPHORUS 5.6 mg/dl (2.5-4.9); POTASSIUM 4.3 mmol/L (3.5-5.1); SODIUM 142 mmol/L (135-144)
[2018-03-06] MEDS: DRONABINOL 2.5 MG CAP PO ×2 (08:19→21:52)
[2018-03-06] MEDS: morphine (ER) 15 MG TAB PO ×2 (08:19→21:52)
[2018-03-06] MEDS: COLLAGENASE 5 GM (UD JAR) TOP (18:51)
[2018-03-06] MEDS: MIRTAZAPINE 15 MG TAB PO (21:51)
[2018-03-07 06:03] LABS: ADD MAN DIFF? NO
[2018-03-07] MEDS: SOD CHLORIDE 0.9% 1,000 ML IV (06:11)
[2018-03-07 06:14] LABS: ABNORMAL IP MESSAGE 1; BASOPHILS % 0.2 % (0.0-2.0); EOSINOPHILS % 0.6 % (0.0-7.0); HEMATOCRIT 35.2 % (42.0-52.0); HEMOGLOBIN 11.6 g/dl (14.0-18.0); LYMPHOCYTES # 0.5 10^3/ul (0.8-2.9); LYMPHOCYTES % 8.5 % (15.0-51.0); MEAN PLATELET VOLUME 11.4 fl (7.4-10.4); MONOCYTE # 0.8 10^3/ul (0.3-0.9); MONOCYTES % 15.2 % (0.0-11.0); NEUTROPHILS % 74.7 % (39.0-77.0); PLATELET COUNT 161 10^3/UL (140-415); POSITIVE DIFF @See below; RED CELL DISTRIBUTION WIDTH 20.5 % (11.5-14.5)
[2018-03-07 06:14] LABS: WHITE BLOOD COUNT 5.3 10^3/ul (4.8-10.8)
[2018-03-07 07:02] LABS: ANION GAP 13 (8-16); BLOOD UREA NITROGEN 56 mg/dl (7-20); CALCIUM 8.6 mg/dl (8.4-10.2); CARBON DIOXIDE 23 mmol/L (21-31); CHLORIDE 111 mmol/L (97-110); CREATININE 2.05 mg/dl (0.61-1.24); GLUCOSE 83 mg/dl (70-220); MAGNESIUM 2.1 mg/dl (1.7-2.5); PHOSPHORUS 3.4 mg/dl (2.5-4.9); POTASSIUM 3.5 mmol/L (3.5-5.1); SODIUM 143 mmol/L (135-144)
[2018-03-07] MEDS: DRONABINOL 2.5 MG CAP PO ×2 (08:17→21:53)
[2018-03-07] MEDS: COLLAGENASE 5 GM (UD JAR) TOP (08:19)
[2018-03-07] MEDS: morphine (ER) 15 MG TAB PO ×2 (08:19→21:53)
[2018-03-07] MEDS: CEFTRIAXONE 1 GM/50 ML (PMX) 50 ML IVPB (17:03)
[2018-03-07] MEDS: MIRTAZAPINE 15 MG TAB PO (21:53)
[2018-03-08 05:42] LABS: ADD MAN DIFF? NO
[2018-03-08 05:46] LABS: ABNORMAL IP MESSAGE 1; BASOPHILS % 0.3 % (0.0-2.0); EOSINOPHILS # 0.1 10^3/ul (0.0-0.5); EOSINOPHILS % 0.7 % (0.0-7.0); HEMATOCRIT 34.7 % (42.0-52.0); HEMOGLOBIN 11.2 g/dl (14.0-18.0); LYMPHOCYTES # 0.6 10^3/ul (0.8-2.9); LYMPHOCYTES % 8.5 % (15.0-51.0); MEAN CORPUSCULAR HEMOGLOBIN 28.5 pg (29.0-33.0); MEAN CORPUSCULAR HGB CONC 32.3 g/dl (32.0-37.0); MEAN CORPUSCULAR VOLUME 88.3 fl (82.0-101.0); MEAN PLATELET VOLUME 11.4 fl (7.4-10.4); MONOCYTE # 1.2 10^3/ul (0.3-0.9); MONOCYTES % 17.5 % (0.0-11.0); NEUTROPHIL # 5.1 10^3/ul (1.6-7.5); NEUTROPHILS % 72.3 % (39.0-77.0); PLATELET COUNT 155 10^3/UL (140-415); POSITIVE DIFF @See below; RED BLOOD COUNT 3.93 10^6/ul (4.70-6.10); RED CELL DISTRIBUTION WIDTH 20.2 % (11.5-14.5)
[2018-03-08] MEDS: SOD CHLORIDE 0.9% 1,000 ML IV (05:47)
[2018-03-08 06:20] LABS: ANION GAP 9 (8-16); BLOOD UREA NITROGEN 45 mg/dl (7-20); CALCIUM 8.4 mg/dl (8.4-10.2); CARBON DIOXIDE 27 mmol/L (21-31); CHLORIDE 112 mmol/L (97-110); CREATININE 1.56 mg/dl (0.61-1.24); GLUCOSE 99 mg/dl (70-220); MAGNESIUM 1.8 mg/dl (1.7-2.5); PHOSPHORUS 2.7 mg/dl (2.5-4.9); POTASSIUM 3.2 mmol/L (3.5-5.1); SODIUM 145 mmol/L (135-144)
[2018-03-08] MEDS: CEFTRIAXONE 1 GM/50 ML (PMX) 50 ML IVPB (09:54)
[2018-03-08] MEDS: SOD CHLORIDE 0.45% 1,000 ML IV (09:55)
[2018-03-08] MEDS: morphine (ER) 15 MG TAB PO ×2 (09:56→21:32)
[2018-03-08] MEDS: POTASSIUM CHLORIDE (SR) 20 MEQ TAB PO (09:57)
[2018-03-08] MEDS: DRONABINOL 2.5 MG CAP PO ×2 (09:58→21:32)
[2018-03-08] MEDS: COLLAGENASE 5 GM (UD JAR) TOP (09:59)
[2018-03-08 16:16] LABS: CREATININE, RANDOM URINE 47 mg/dL (20-320); MICROALBUMIN 17.3 mg/dL; MICROALBUMIN/CREATININE RATIO 368 (<30)
[2018-03-08] MEDS: MIRTAZAPINE 15 MG TAB PO (21:32)
[2018-03-09] MEDS: SOD CHLORIDE 0.45% 1,000 ML IV (05:44)
[2018-03-09 05:46] LABS: ADD MAN DIFF? NO
[2018-03-09 05:52] LABS: WHITE BLOOD COUNT 9.7 10^3/ul (4.8-10.8)
[2018-03-09 05:52] LABS: BASOPHILS % 0.1 % (0.0-2.0); EOSINOPHILS % 0.4 % (0.0-7.0); HEMATOCRIT 37.4 % (42.0-52.0); HEMOGLOBIN 11.8 g/dl (14.0-18.0); LYMPHOCYTES # 0.8 10^3/ul (0.8-2.9); MEAN CORPUSCULAR HEMOGLOBIN 28.6 pg (29.0-33.0); MEAN CORPUSCULAR HGB CONC 31.6 g/dl (32.0-37.0); MEAN CORPUSCULAR VOLUME 90.6 fl (82.0-101.0); MEAN PLATELET VOLUME 11.4 fl (7.4-10.4); MONOCYTE # 1.4 10^3/ul (0.3-0.9); MONOCYTES % 14.4 % (0.0-11.0); NEUTROPHIL # 7.3 10^3/ul (1.6-7.5); NEUTROPHILS % 75.5 % (39.0-77.0); PLATELET COUNT 183 10^3/UL (140-415); RED BLOOD COUNT 4.13 10^6/ul (4.70-6.10); RED CELL DISTRIBUTION WIDTH 20.5 % (11.5-14.5)
[2018-03-09 06:15] LABS: ANION GAP 10 (8-16); BLOOD UREA NITROGEN 36 mg/dl (7-20); CALCIUM 8.7 mg/dl (8.4-10.2); CARBON DIOXIDE 28 mmol/L (21-31); CHLORIDE 108 mmol/L (97-110); CREATININE 1.64 mg/dl (0.61-1.24); GLUCOSE 105 mg/dl (70-220); MAGNESIUM 1.7 mg/dl (1.7-2.5); PHOSPHORUS 2.8 mg/dl (2.5-4.9); POTASSIUM 3.3 mmol/L (3.5-5.1); SODIUM 143 mmol/L (135-144)
[2018-03-09] MEDS: CEFTRIAXONE 1 GM/50 ML (PMX) 50 ML IVPB (08:33)
[2018-03-09] MEDS: morphine (ER) 15 MG TAB PO ×2 (08:34→20:31)
[2018-03-09] MEDS: DRONABINOL 2.5 MG CAP PO ×2 (08:34→20:31)
[2018-03-09] MEDS: COLLAGENASE 5 GM (UD JAR) TOP (08:34)
[2018-03-09] MEDS: POTASSIUM CHLORIDE (SR) 20 MEQ TAB PO (12:24)
[2018-03-09] MEDS: MIRTAZAPINE 15 MG TAB PO (20:31)
[2018-03-10] MEDS ORDERED: hydrALAzine 20 MG INJ IV (01:00)
[2018-03-10] MEDS: SOD CHLORIDE 0.45% 1,000 ML IV ×2 (05:25→19:56)
[2018-03-10 05:40] LABS: ADD MAN DIFF? NO
[2018-03-10 05:41] LABS: ABNORMAL IP MESSAGE 1; BASOPHILS % 0.3 % (0.0-2.0); EOSINOPHILS % 0.1 % (0.0-7.0); HEMATOCRIT 38.6 % (42.0-52.0); HEMOGLOBIN 12.2 g/dl (14.0-18.0); LYMPHOCYTES # 0.5 10^3/ul (0.8-2.9); LYMPHOCYTES % 3.8 % (15.0-51.0); MEAN CORPUSCULAR HEMOGLOBIN 28.8 pg (29.0-33.0); MEAN CORPUSCULAR HGB CONC 31.6 g/dl (32.0-37.0); MEAN CORPUSCULAR VOLUME 91.3 fl (82.0-101.0); MEAN PLATELET VOLUME 11.7 fl (7.4-10.4); MONOCYTE # 0.9 10^3/ul (0.3-0.9); MONOCYTES % 6.5 % (0.0-11.0); NEUTROPHIL # 12.1 10^3/ul (1.6-7.5); NEUTROPHILS % 87.9 % (39.0-77.0); PLATELET COUNT 174 10^3/UL (140-415); POSITIVE DIFF @See below; RED BLOOD COUNT 4.23 10^6/ul (4.70-6.10); RED CELL DISTRIBUTION WIDTH 20.6 % (11.5-14.5)
[2018-03-10 05:41] LABS: WHITE BLOOD COUNT 13.8 10^3/ul (4.8-10.8)
[2018-03-10 06:13] LABS: ANION GAP 15 (8-16); BLOOD UREA NITROGEN 51 mg/dl (7-20); CALCIUM 8.8 mg/dl (8.4-10.2); CARBON DIOXIDE 24 mmol/L (21-31); CHLORIDE 107 mmol/L (97-110); CREATININE 2.84 mg/dl (0.61-1.24); GLUCOSE 125 mg/dl (70-220); MAGNESIUM 1.8 mg/dl (1.7-2.5); PHOSPHORUS 4.3 mg/dl (2.5-4.9); POTASSIUM 3.8 mmol/L (3.5-5.1); SODIUM 142 mmol/L (135-144)
[2018-03-10] MEDS: COLLAGENASE 5 GM (UD JAR) TOP (08:32)
[2018-03-10] MEDS: CEFTRIAXONE 1 GM/50 ML (PMX) 50 ML IVPB (08:32)
[2018-03-10] MEDS: DRONABINOL 2.5 MG CAP PO ×2 (08:39→22:01)
[2018-03-10] MEDS: morphine (ER) 15 MG TAB PO ×2 (08:40→22:01)
[2018-03-10] MEDS: MIRTAZAPINE 15 MG TAB PO (22:01)
[2018-03-11 05:43] LABS: ADD MAN DIFF? NO
[2018-03-11 05:50] LABS: ABNORMAL IP MESSAGE 1; BASOPHILS % 0.2 % (0.0-2.0); EOSINOPHILS % 0.2 % (0.0-7.0); HEMATOCRIT 35.6 % (42.0-52.0); HEMOGLOBIN 11.5 g/dl (14.0-18.0); LYMPHOCYTES # 0.4 10^3/ul (0.8-2.9); LYMPHOCYTES % 2.6 % (15.0-51.0); MEAN CORPUSCULAR HGB CONC 32.3 g/dl (32.0-37.0); MEAN CORPUSCULAR VOLUME 89.9 fl (82.0-101.0); MEAN PLATELET VOLUME 11.6 fl (7.4-10.4); MONOCYTE # 0.7 10^3/ul (0.3-0.9); MONOCYTES % 4.1 % (0.0-11.0); NEUTROPHIL # 14.8 10^3/ul (1.6-7.5); NEUTROPHILS % 91.2 % (39.0-77.0); PLATELET COUNT 147 10^3/UL (140-415); POSITIVE DIFF @See below; RED BLOOD COUNT 3.96 10^6/ul (4.70-6.10); RED CELL DISTRIBUTION WIDTH 20.4 % (11.5-14.5)
[2018-03-11 05:50] LABS: WHITE BLOOD COUNT 16.2 10^3/ul (4.8-10.8)
[2018-03-11 06:24] LABS: ANION GAP 17 (8-16); BLOOD UREA NITROGEN 63 mg/dl (7-20); CALCIUM 8.9 mg/dl (8.4-10.2); CARBON DIOXIDE 22 mmol/L (21-31); CHLORIDE 104 mmol/L (97-110); CREATININE 3.73 mg/dl (0.61-1.24); GLUCOSE 109 mg/dl (70-220); MAGNESIUM 1.8 mg/dl (1.7-2.5); PHOSPHORUS 5.6 mg/dl (2.5-4.9); SODIUM 139 mmol/L (135-144)
[2018-03-11] MEDS: morphine (ER) 15 MG TAB PO (09:39)
[2018-03-11] MEDS: DRONABINOL 2.5 MG CAP PO ×2 (09:39→22:31)
[2018-03-11] MEDS: SOD CHLORIDE 0.9% 1,000 ML IV ×2 (09:40→22:43)
[2018-03-11] MEDS: COLLAGENASE 5 GM (UD JAR) TOP (09:40)
[2018-03-11] MEDS: CEFTRIAXONE 1 GM/50 ML (PMX) 50 ML IVPB (09:40)
[2018-03-11] MEDS: MIRTAZAPINE 15 MG TAB PO (22:31)
[2018-03-12 06:03] LABS: WHITE BLOOD COUNT 31.3 10^3/ul (4.8-10.8)
[2018-03-12 06:03] LABS: ABNORMAL IP MESSAGE 1; HEMATOCRIT 35.2 % (42.0-52.0); HEMOGLOBIN 10.8 g/dl (14.0-18.0); MEAN CORPUSCULAR HEMOGLOBIN 28.7 pg (29.0-33.0); MEAN CORPUSCULAR HGB CONC 30.7 g/dl (32.0-37.0); MEAN CORPUSCULAR VOLUME 93.6 fl (82.0-101.0); MEAN PLATELET VOLUME 12.7 fl (7.4-10.4); PLATELET COUNT 189 10^3/UL (140-415); POSITIVE DIFF @See below; RED BLOOD COUNT 3.76 10^6/ul (4.70-6.10); RED CELL DISTRIBUTION WIDTH 20.7 % (11.5-14.5)
[2018-03-12] MEDS ORDERED: NALOXONE (0.4 MG/ML) INJ (06:17)
[2018-03-12 06:22] LABS: ADD MAN DIFF? YES
[2018-03-12 06:28] LABS: AADO2 Arterial 54.4 mmHg (7.0-24.0); Allen Test ACCEPTAB; Arterial Base Excess -12.7 mmol/L (-3.0-3); Arterial Blood Gas Oxygen Sat 90.8 mmHG (95.0-98.0); Arterial COHb 0.8 % (0.0-3.0); Arterial HCO3 17.1 mmol/L (22.0-26.0); Arterial MetHb 0.1 % (0.0-1.5); Arterial Total Hemglobin 11.4 g/dl (12.0-18.0); Arterial pCO2 57.6 mmhg (35-45); MODE NASAL CANNULA; Site Left Radial
[2018-03-12 06:39] LABS: ANION GAP 17 (8-16); BLOOD UREA NITROGEN 71 mg/dl (7-20); CALCIUM 9.1 mg/dl (8.4-10.2); CARBON DIOXIDE 22 mmol/L (21-31); CHLORIDE 105 mmol/L (97-110); CREATININE 4.87 mg/dl (0.61-1.24); GLUCOSE 83 mg/dl (70-220); PHOSPHORUS 8.3 mg/dl (2.5-4.9); POTASSIUM 4.5 mmol/L (3.5-5.1); SODIUM 139 mmol/L (135-144)
[2018-03-12] MEDS: NALOXONE (0.4 MG/ML) INJ IV (06:43)
[2018-03-12 07:06] LABS: ANISOCYTOSIS 1+ (0-0); BAND NEUTROPHILS % (M) 29 % (0-4); BURR CELLS 3+ (0-0); GIANT THROMBO% (M) 1 % (0-0); LYMPHOCYTES #M 0.3 10^3/ul (0.8-2.9); LYMPHOCYTES % (M) 1 % (15-51); MONOCYTE #M 0.9 10^3/ul (0.3-0.9); MONOCYTES % (M) 3 % (0-11); PLATELET ESTIMATE NORMAL; POIKILOCYTOSIS 2+ (0-0); POLYCHROMASIA 1+ (0-0); SEG NEUT #M 23.8 10^3/ul (1.6-7.5); SEGMENTED NEUTROPHILS (M) % 67 % (39-77); SMUDGE%M 3 % (0-0)
[2018-03-12] MEDS ORDERED: VANCOMYCIN IV PER PHARMACY XX (07:30)
[2018-03-12 07:34] LABS: ADD MAN DIFF? NO
[2018-03-12 07:37] LABS: WHITE BLOOD COUNT 18.7 10^3/ul (4.8-10.8)
[2018-03-12 07:37] LABS: ABNORMAL IP MESSAGE 1; BASOPHILS % 0.2 % (0.0-2.0); HEMATOCRIT 36.2 % (42.0-52.0); HEMOGLOBIN 11.1 g/dl (14.0-18.0); LYMPHOCYTES # 0.3 10^3/ul (0.8-2.9); LYMPHOCYTES % 1.5 % (15.0-51.0); MEAN CORPUSCULAR HEMOGLOBIN 28.1 pg (29.0-33.0); MEAN CORPUSCULAR HGB CONC 30.7 g/dl (32.0-37.0); MEAN CORPUSCULAR VOLUME 91.6 fl (82.0-101.0); MEAN PLATELET VOLUME 12.4 fl (7.4-10.4); MONOCYTE # 0.3 10^3/ul (0.3-0.9); MONOCYTES % 1.4 % (0.0-11.0); NEUTROPHIL # 17.7 10^3/ul (1.6-7.5); NEUTROPHILS % 94.5 % (39.0-77.0); PLATELET COUNT 145 10^3/UL (140-415); POSITIVE DIFF @See below; RED BLOOD COUNT 3.95 10^6/ul (4.70-6.10); RED CELL DISTRIBUTION WIDTH 20.5 % (11.5-14.5)
[2018-03-12 08:04] LABS: ALANINE AMINOTRANSFERASE 25 IU/L (13-69); ALBUMIN 2.5 g/dl (3.3-4.9); ALBUMIN/GLOBULIN RATIO 0.75; ALKALINE PHOSPHATASE 89 IU/L (42-121); ANION GAP 21 (8-16); ASPARTATE AMINO TRANSFERASE 20 IU/L (15-46); BLOOD UREA NITROGEN 73 mg/dl (7-20); CALCIUM 9.2 mg/dl (8.4-10.2); CARBON DIOXIDE 20 mmol/L (21-31); CHLORIDE 104 mmol/L (97-110); CREATININE 4.98 mg/dl (0.61-1.24); GLUCOSE 106 mg/dl (70-220); POTASSIUM 4.6 mmol/L (3.5-5.1); SODIUM 140 mmol/L (135-144); TOTAL PROTEIN 5.8 g/dl (6.1-8.1)
[2018-03-12 08:27] LABS: LACTIC ACID 2.2 mmol/L (0.5-2.0)
[2018-03-12] MEDS: PIPER-TAZO 2.25 GM (PMX) 50 ML IVPB ×3 (08:30→21:50)
[2018-03-12] MEDS: DRONABINOL 2.5 MG CAP PO ×2 (09:00→21:26)
[2018-03-12] MEDS: SOD CHLORIDE 0.9% 1,000 ML IV (13:25)
[2018-03-12] MEDS: VANCOMYCIN 1 GM 250 ML IVPB (13:26)
[2018-03-12] MEDS: COLLAGENASE 5 GM (UD JAR) TOP (14:37)
[2018-03-12] MEDS: MIRTAZAPINE 15 MG TAB PO (21:26)
[2018-03-12 22:44] LABS: CREATININE,URINE RANDOM 25.26 mg/dl (20-370)
[2018-03-12 22:44] LABS: SODIUM,URINE RANDOM 105 mmol/L (30-90)
[2018-03-12 22:47] LABS: ADD UMIC YES; UR ASCORBIC ACID NEGATIVE (NEGATIVE); UR BILIRUBIN (Dip) NEGATIVE (NEGATIVE); UR BLOOD (Dip) 2+ mg/dL (NEGATIVE); UR CLARITY CLOUDY (CLEAR); UR COLOR YELLOW (YELLOW); UR GLUCOSE (Dip) 1+ mg/dL (NEGATIVE); UR KETONES (Dip) TRACE mg/dL (NEGATIVE); UR LEUKOCYTE ESTERASE (Dip) 3+ Leu/ul (NEGATIVE); UR NITRITE (Dip) NEGATIVE (NEGATIVE); UR RBC 50 /HPF (0-5); UR TOTAL PROTEIN (Dip) 2+ mg/dl (NEGATIVE); UR UROBILINOGEN (Dip) NEGATIVE (NEGATIVE); UR WBC > 182 /HPF (0-5)
[2018-03-13] MEDS: PIPER-TAZO 2.25 GM (PMX) 50 ML IVPB ×2 (06:35→13:45)
[2018-03-13] MEDS: SOD CHLORIDE 0.9% 1,000 ML IV ×3 (06:36→20:29)
[2018-03-13 06:52] LABS: ADD MAN DIFF? NO
[2018-03-13 06:58] LABS: ABNORMAL IP MESSAGE 1; BASOPHILS % 0.2 % (0.0-2.0); HEMATOCRIT 32.6 % (42.0-52.0); HEMOGLOBIN 10.1 g/dl (14.0-18.0); LYMPHOCYTES # 0.4 10^3/ul (0.8-2.9); LYMPHOCYTES % 1.9 % (15.0-51.0); MEAN CORPUSCULAR HEMOGLOBIN 28.3 pg (29.0-33.0); MEAN CORPUSCULAR VOLUME 91.3 fl (82.0-101.0); MEAN PLATELET VOLUME 12.7 fl (7.4-10.4); MONOCYTE # 0.6 10^3/ul (0.3-0.9); MONOCYTES % 2.6 % (0.0-11.0); NEUTROPHIL # 20.4 10^3/ul (1.6-7.5); NEUTROPHILS % 92.1 % (39.0-77.0); PLATELET COUNT 119 10^3/UL (140-415); POSITIVE DIFF @See below; RED BLOOD COUNT 3.57 10^6/ul (4.70-6.10); RED CELL DISTRIBUTION WIDTH 20.6 % (11.5-14.5)
[2018-03-13 06:58] LABS: WHITE BLOOD COUNT 22.1 10^3/ul (4.8-10.8)
[2018-03-13 07:36] LABS: ANION GAP 20 (8-16); BLOOD UREA NITROGEN 87 mg/dl (7-20); CALCIUM 8.1 mg/dl (8.4-10.2); CARBON DIOXIDE 19 mmol/L (21-31); CHLORIDE 107 mmol/L (97-110); CREATININE 5.43 mg/dl (0.61-1.24); GLUCOSE 105 mg/dl (70-220); MAGNESIUM 1.9 mg/dl (1.7-2.5); PHOSPHORUS 8.7 mg/dl (2.5-4.9); POTASSIUM 4.5 mmol/L (3.5-5.1); SODIUM 141 mmol/L (135-144)
[2018-03-13] MEDS: DRONABINOL 2.5 MG CAP PO (08:20)
[2018-03-13] MEDS: COLLAGENASE 5 GM (UD JAR) TOP (08:20)
[2018-03-14] MEDS: HYDROCODONE/APAP (10/325) TAB PO (01:31)
[2018-03-14] MEDS: COLLAGENASE 5 GM (UD JAR) TOP (08:09)
[2018-03-14 09:07] LABS: ADD MAN DIFF? NO
[2018-03-14 09:10] LABS: WHITE BLOOD COUNT 23.7 10^3/ul (4.8-10.8)
[2018-03-14 09:10] LABS: ABNORMAL IP MESSAGE 1; HEMATOCRIT 34.2 % (42.0-52.0); HEMOGLOBIN 10.7 g/dl (14.0-18.0); MEAN CORPUSCULAR HEMOGLOBIN 29.1 pg (29.0-33.0); MEAN CORPUSCULAR HGB CONC 31.3 g/dl (32.0-37.0); MEAN CORPUSCULAR VOLUME 92.9 fl (82.0-101.0); MEAN PLATELET VOLUME 12.1 fl (7.4-10.4); PLATELET COUNT 86 10^3/UL (140-415); POSITIVE DIFF @See below; RED BLOOD COUNT 3.68 10^6/ul (4.70-6.10)
[2018-03-14 09:28] LABS: ANION GAP 19 (8-16); BLOOD UREA NITROGEN 98 mg/dl (7-20); CALCIUM 8.4 mg/dl (8.4-10.2); CARBON DIOXIDE 17 mmol/L (21-31); CHLORIDE 112 mmol/L (97-110); GLUCOSE 101 mg/dl (70-220); POTASSIUM 4.8 mmol/L (3.5-5.1); SODIUM 143 mmol/L (135-144)
[2018-03-14 09:37] LABS: CREATININE 5.67 mg/dl (0.61-1.24)
[2018-03-14 10:27] LABS: ANISOCYTOSIS 2+ (0-0); BAND NEUTROPHILS #M 1.8 10^3/ul (0.0-0.6); BAND NEUTROPHILS % (M) 8 % (0-4); BURR CELLS 1+ (0-0); LYMPHOCYTES #M 0.9 10^3/ul (0.8-2.9); LYMPHOCYTES % (M) 4 % (15-51); MONOCYTE #M 0.4 10^3/ul (0.3-0.9); MONOCYTES % (M) 2 % (0-11); OVALOCYTES 1+ (0-0); PLATELET ESTIMATE DECREASED; POIKILOCYTOSIS 1+ (0-0); POLYCHROMASIA 1+ (0-0); SEG NEUT #M 20.8 10^3/ul (1.6-7.5); SEGMENTED NEUTROPHILS (M) % 86 % (39-77); SMUDGE%M 5 % (0-0)
[2018-03-14] MEDS: morphine 2 MG INJ IV ×2 (18:55→21:02)
[2018-03-14] MEDS: morphine (DRIP) 100 MG/100 ML 100 ML IV (23:14)
[2018-03-15 18:26] LABS: CREATININE, RANDOM URINE 27 mg/dL (20-320); MICROALBUMIN 52.2 mg/dL; MICROALBUMIN/CREATININE RATIO 1933 (<30)
== END 2018-03-14 23:15 | disposition expired | DRG 686 ==
LOC: TEL 03-12 06:36 → E/R 20:05 → PP2 03-11 17:20 → 6WM 03-05 00:20 → 2NE 03-14 21:56
PROC: 30283B1 Transfusion of Nonautologous 4-Factor Prothrombin Complex Concentrate into Vein, Percutaneous Approach (ICD-10-PCS; 2018-03-05)
PROC: 5A09457 Assistance with Respiratory Ventilation, 24-96 Consecutive Hours, Continuous Positive Airway Pressure (ICD-10-PCS; principal; 2018-03-14)
DX: C67.9 Malignant neoplasm of bladder, unspecified (principal); L89.153 Pressure ulcer of sacral region, stage 3; E43 Unspecified severe protein-calorie malnutrition; J96.02 Acute respiratory failure with hypercapnia; G93.40 Encephalopathy, unspecified; J96.01 Acute respiratory failure with hypoxia; N17.9 Acute kidney failure, unspecified; E87.2 Acidosis; E87.1 Hypo-osmolality and hyponatremia; C79.9 Secondary malignant neoplasm of unspecified site; Z68.1 Body mass index [BMI] 19.9 or less, adult; E87.0 Hyperosmolality and hypernatremia; N13.30 Unspecified hydronephrosis; E86.0 Dehydration; N18.9 Chronic kidney disease, unspecified; E87.5 Hyperkalemia; Z79.899 Other long term (current) drug therapy; D50.9 Iron deficiency anemia, unspecified; E83.9 Disorder of mineral metabolism, unspecified; N13.9 Obstructive and reflux uropathy, unspecified; I49.9 Cardiac arrhythmia, unspecified; R41.0 Disorientation, unspecified; R33.9 Retention of urine, unspecified; E87.6 Hypokalemia; Z66 Do not resuscitate; Z51.5 Encounter for palliative care
CPT/HCPCS: 36415; 36430; 36600; 71045; 74176; 76775; 80048; 80053; 81001; 81003; 82043; 82803; 82962; 83605; 83690; 83735; 84100; 84155; 84300; 84484; 85025; 86850; 86900; 86901; 86920; 87086; 93005; 93971; 94660; 96361; 96374; 97110; 97163; 97530; 99291-25